=== PATIENT | male | born 1960 | race Caucasian/White ===

== ENCOUNTER 2019-09-25 11:11 | Inpatient (IN) | payer SELFPAY ==
[~2019-09-25] VITALS: Ht 175.2 cm; Wt 68.1 kg
[2019-09-25] VITALS (12 sets, daily range): BP systolic 142–214; BP diastolic 80–121
[~2019-09-25 11:11] MED LIST: KEFLEX500 MG PO; MOTRIN800 MG PO; TOBRADEX 0.1%-0.5 ML OPH; VICODIN 5/500 505 MG PO; [UNRECOGNIZED DRUG - REMARK]
[2019-09-25 11:35] LABS: BASO % 0.5 % (0.0-1.0); EOS # 0.2 10*3/uL (0.0-0.4); EOS % 3.1 % (1.0-4.0); HEMATOCRIT 41.9 % (42.0-52.0); LYMPH % 13.4 % (27.0-41.0); MEAN CELL VOLUME 91.9 fl (80.0-94.0); MEAN CORPUSCULAR HGB 31.8 pg (27.0-31.0); MEAN CORPUSCULAR HGB CONC 34.6 g/dl (33.0-37.0); MEAN PLATELET VOLUME 9.4 fl (9.6-12.3); MONO # 0.5 10*3/uL (0.1-1.0); MONO % 6.5 % (3.0-9.0); NEUT # 5.8 10*3/uL (2.3-7.9); NEUT % 76.1 % (47.0-73.0); PLATELET COUNT AUTOMATED 160 10*3/uL (130-400); RED BLOOD COUNT 4.56 10*6/uL (4.50-5.90); WHITE BLOOD COUNT 7.6 10*3/uL (4.8-10.8)
[2019-09-25 11:46] LABS: ACT PARTIAL THROMBO TIME 24.2 SECONDS (20.0-32.1)
--- NOTE | 2019-09-25 11:50 | NUR ---
Susy humphrey aware of pt with increased blood pressure and orders at this time.
[2019-09-25 11:51] LABS: ALBUMIN 3.8 gm/dl (3.1-4.5); ALKALINE PHOSPHATASE 79 U/L (45-117); BUN 11 mg/dl (7-24); CHLORIDE 107 mmol/L (98-107); POTASSIUM 4.4 mmol/L (3.5-5.1); SGOT/AST 25 IU/L (3-35); SGPT/ALT 33 U/L (12-78); SODIUM 140 mmol/L (136-145); TOTAL PROTEIN 7.3 gm/dL (6.4-8.2)
[2019-09-25 11:55] LABS: TROPONIN I < 0.015 ng/ml (<0.045)
--- NOTE | 2019-09-25 12:10 | NUR ---
Pt states pain is better after nitro.
--- NOTE | 2019-09-25 13:55 | NUR ---
Susy pa aware of increased blood pressure in the 190s and orders at this time.
--- NOTE | 2019-09-25 14:09 | NUR ---
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
--- NOTE | 2019-09-25 14:58 | NUR ---
Jacob and in to see pt.Aware of increased blood pressure,Ok to get manual and then pt can go to room.
--- NOTE | 2019-09-25 15:15 | NUR ---
Pt transfered [facility] and pt had all belongings.
--- NOTE | 2019-09-25 15:20 | NUR ---
A 59, admitted to 5E, under the services of BECK Cardoza DO with a diagnosis of CHEST PAIN,HTN. Chief complaint is CHEST PAIN. Patient arrived via bed from ER. Monitor applied. Initial assessment completed. Vital signs taken and recorded. BECK CARDOZA DO notified of admission to the unit. Orders received. See assessment for past medical history, medications and allergies. Patient and/or family oriented to unit. [facility] visitation policy reviewed. Clothing/patient valuable form completed. JAMES ESQUIVEL
--- NOTE | 2019-09-25 15:22 | NUR ---
LADONNA VALENCIA GIVEN PER ORDER. MANUAL BP 214/110.
--- NOTE | 2019-09-25 16:30 | NUR ---
REPEAT MANUAL BP 194/114. DR. NORIEGA NOTIFIED.
--- NOTE | 2019-09-25 20:00 | NUR ---
PATIENT RESTING IN BED, NO DISTRESS NOTED. ASSSESSMENT COMPLETE. PATIENT AWARE HE IS TO BE NPO AT MIDNIGHT FOR STRESS TEST IN MORNING. BP STABLE. WILL CONT TO MONITOR.
[2019-09-26] VITALS: BP 142/93
--- NOTE | 2019-09-26 00:19 | NUR ---
NORCO GIVEN PER ORDER FOR PAIN RIGHT SIDE CHEST PAIN WORSE WITH MOVEMENT RATED "10" BUT NOT THAT BAD IF HE'S LAYING STILL. SEE MAR.
--- NOTE | 2019-09-26 01:15 | NUR ---
PERCOCET EFFECTIVE FOR PAIN PER PT.
--- NOTE | 2019-09-26 02:09 | NUR ---
24 HR chart check completed.
[2019-09-26 05:48] VITALS: BP 168/98
--- NOTE | 2019-09-26 05:50 | NUR ---
CALLED RESIDENT PHONE NO ANSWER TO NOTIFY THEM OF BP.
[2019-09-26 06:56] LABS: BASO # 0.1 10*3/uL (0.0-0.1); BASO % 0.7 % (0.0-1.0); EOS # 0.4 10*3/uL (0.0-0.4); EOS % 5.3 % (1.0-4.0); HEMATOCRIT 42.2 % (42.0-52.0); LYMPH # 1.5 10*3/uL (1.3-4.4); LYMPH % 21.5 % (27.0-41.0); MEAN CELL VOLUME 93.8 fl (80.0-94.0); MEAN CORPUSCULAR HGB 31.1 pg (27.0-31.0); MEAN CORPUSCULAR HGB CONC 33.2 g/dl (33.0-37.0); MEAN PLATELET VOLUME 10.3 fl (9.6-12.3); MONO # 0.6 10*3/uL (0.1-1.0); MONO % 9.2 % (3.0-9.0); NEUT # 4.4 10*3/uL (2.3-7.9); PLATELET COUNT AUTOMATED 142 10*3/uL (130-400); RED CELL DISTRI WIDTH 11.9 % (0-14.5); WHITE BLOOD COUNT 6.9 10*3/uL (4.8-10.8)
[2019-09-26 07:23] LABS: ALBUMIN 3.4 gm/dl (3.1-4.5); ALKALINE PHOSPHATASE 72 U/L (45-117); BUN 18 mg/dl (7-24); CHLORIDE 102 mmol/L (98-107); CHOLESTEROL 163 mg/dL (<200); CREATININE 0.87 mg/dL (0.70-1.30); HDL CHOLESTEROL 113 mg/dl (40-60); LDL CHOLESTEROL 37 mg/dL (9-159); POTASSIUM 4.1 mmol/L (3.5-5.1); SGOT/AST 22 IU/L (3-35); SGPT/ALT 28 U/L (12-78); SODIUM 135 mmol/L (136-145); TOTAL PROTEIN 6.5 gm/dL (6.4-8.2); TRIGLYCERIDES 64 mg/dl (<150); VLDL CHOLESTEROL 13 mg/dL (6-40)
[2019-09-26 07:33] LABS: ACT PARTIAL THROMBO TIME 25.9 SECONDS (20.0-32.1)
[2019-09-26 08:00] VITALS: BP 169/96
--- NOTE | 2019-09-26 08:00 | NUR ---
DR. POST HAS ROUNDED AND AWARE OF ELEVATED BP. NORVASC TO BE GIVEN EARLY.
[2019-09-26 08:09] LABS: VITAMIN D, 25-HYDROXY 19.5 ng/mL (30-100)
--- NOTE | 2019-09-26 10:35 | NUR ---
PATIENT TAKEN TO CARDIAC REHAB.
--- NOTE | 2019-09-26 11:00 | NUR ---
INFORMED CONSENT OBTAINED FOR LEXISCAN NUCLEAR STRESS TEST WITH DR. FINNEY. RESTING EKG SINUS CHRISTINA WITH A RESTING HR OF 56 WITH BP OF 174/96. LUNGS CLEAR WITH SPO2 OF 99% ON ROOM AIR. PT COMPLETED A 1:00 LEXISCAN PROTOCOL RECEIVING LEXISCAN 0.4 MG IV OVER 10 SECONDS. HAD NO CHEST PAIN OR ANY EKG CHANGES. HAD A PEAK HR OF 89 WITH BP OF 154/88. LAST RECOVERY HR OF 73 WITH BP OF 156/90. AWAITING SCANNING IN STABLE CONDITION.
[2019-09-26 12:00] VITALS: BP 148/88
--- NOTE | 2019-09-26 12:00 | NUR ---
Assistant Dean Of Students in to talk to patient. Patient states lives at HOME with GIRLFRIEND. There are 3 steps in the home. Physician: NONE AT THIS TIME Pharmacy: NO MEDS Home health services: NONE Patient's level of ADLs: INDEPENDENT Patient has working utilities: YES DME: NONE Follow-up physician's appointment after d/c: WILL FIND ONE AND MAKE APPOINTMENT Does patient want to access PORTAL?: NO Discharge plan PT LIVES AT HOME WITH HIS GIRLFRIEND AND IS INDEPENDENT IN HIS CARE. DENIES HE WILL HAVE ANY NEEDS ON DISCHARGE. PLANS TO RETURN HOME WHEN MEDICALLY STABLE. WILL CONTINUE TO FOLLOW. PT WILL HAVE A RIDE HOME.. AARON MARRUFO
--- NOTE | 2019-09-26 12:39 | NUR ---
PATIENT IS BACK FROM STRESS TEST.
[2019-09-26] MEDS ORDERED: LISINOPRIL10 M1 PO (15:09)
[2019-09-26] MEDS ORDERED: VITAMIN B-12100 MCG PO (15:09)
[2019-09-26] MEDS ORDERED: VITAMIN D350 MC2 PO (15:09)
[2019-09-26] MEDS ORDERED: AMLODIPINE BESYL5 MG PO (15:09)
--- NOTE | 2019-09-26 15:34 | NUR ---
PATIENT BEING DISCHARGED.
== END 2019-09-26 15:34 | disposition home or self-care (01) | DRG 206 ==
LOC: ED 11:11 → 5E 13:20 → EDHOLD 13:20 → 5E 14:29
PROVIDERS: Emergency Medicine; Internal Medicine; ADMIT Internal Medicine
PROC: 4A02XM4 Measurement of Cardiac Total Activity, External Approach (ICD-10-PCS; principal; 2019-09-26)
PROC: 3E073KZ Introduction of Other Diagnostic Substance into Coronary Artery, Percutaneous Approach (ICD-10-PCS; principal; 2019-09-26)
DX: M94.0 Chondrocostal junction syndrome [Tietze] (principal); E87.1 Hypo-osmolality and hyponatremia; I16.0 Hypertensive urgency; I10 Essential (primary) hypertension; F41.9 Anxiety disorder, unspecified; K21.9 Gastro-esophageal reflux disease without esophagitis; E83.41 Hypermagnesemia; F17.220 Nicotine dependence, chewing tobacco, uncomplicated; R00.1 Bradycardia, unspecified; E53.8 Deficiency of other specified B group vitamins; Z86.73 Personal history of transient ischemic attack (TIA), and cerebral infarction without residual deficits; Z71.6 Tobacco abuse counseling; Z82.49 Family history of ischemic heart disease and other diseases of the circulatory system; Z82.3 Family history of stroke

== ENCOUNTER 2019-10-29 22:06 | Observation (INO) | payer OTHER ==
[~2019-10-29] VITALS: Ht 175.2 cm; Wt 69.0 kg
[~2019-10-29 22:06] MED LIST changes: +AMLODIPINE BESYL5 MG PO; +LISINOPRIL10 M1 PO; +VITAMIN B-12100 MCG PO; +VITAMIN D350 MC2 PO
[2019-10-29 22:13] VITALS: BP 140/86
[2019-10-29 22:26] VITALS: BP 136/74
[2019-10-29 22:40] VITALS: BP 126/81
[2019-10-29 22:57] LABS: BASO # 0.1 10*3/uL (0.0-0.1); BASO % 0.5 % (0.0-1.0); EOS % 0.2 % (1.0-4.0); HEMATOCRIT 40.2 % (42.0-52.0); LYMPH # 1.6 10*3/uL (1.3-4.4); LYMPH % 16.7 % (27.0-41.0); MEAN CELL VOLUME 94.6 fl (80.0-94.0); MEAN CORPUSCULAR HGB 31.5 pg (27.0-31.0); MEAN CORPUSCULAR HGB CONC 33.3 g/dl (33.0-37.0); MEAN PLATELET VOLUME 9.3 fl (9.6-12.3); MONO # 1.2 10*3/uL (0.1-1.0); NEUT # 6.6 10*3/uL (2.3-7.9); NEUT % 69.4 % (47.0-73.0); PLATELET COUNT AUTOMATED 191 10*3/uL (130-400); RED BLOOD COUNT 4.25 10*6/uL (4.50-5.90); WHITE BLOOD COUNT 9.6 10*3/uL (4.8-10.8)
[2019-10-29 23:00] VITALS: BP 133/83
[2019-10-29 23:09] LABS: ACT PARTIAL THROMBO TIME 24.6 SECONDS (20.0-32.1)
[2019-10-29 23:15] LABS: ALBUMIN 4.2 gm/dl (3.1-4.5); ALKALINE PHOSPHATASE 97 U/L (45-117); BUN 21 mg/dl (7-24); CHLORIDE 105 mmol/L (98-107); CREATININE 1.06 mg/dL (0.70-1.30); POTASSIUM 3.2 mmol/L (3.5-5.1); SGOT/AST 43 IU/L (3-35); SGPT/ALT 37 U/L (12-78); SODIUM 136 mmol/L (136-145); TOTAL PROTEIN 7.8 gm/dL (6.4-8.2)
[2019-10-29 23:29] LABS: TROPONIN I < 0.015 ng/ml (<0.045)
[2019-10-29 23:30] VITALS: BP 137/88
--- NOTE | 2019-10-30 00:12 | NUR ---
PT STATES LONG HE DOES NOT MOVE HE IS NOT HAVING ANY CHEST PAIN. SETH VEGA RN.
[2019-10-30 00:56] VITALS: BP 136/85
--- NOTE | 2019-10-30 01:30 | NUR ---
A 59, admitted to 4E, under the services of PABLO Castorena DO with a diagnosis of CHEST PAIN. Chief complaint is CHEST PAIN. Patient arrived via bed from ER. Monitor applied. Initial assessment completed. Vital signs taken and recorded. PABLO CASTORENA DO notified of admission to the unit. Orders received. See assessment for past medical history, medications and allergies. Patient oriented to unit. Clothing/patient valuable form completed. JOHN VILLAGOMEZ
--- NOTE | 2019-10-30 01:30 | NUR ---
A 59, admitted to , under the services of PABLO Castorena DO with a diagnosis of CHEST PAIN. Chief complaint is CHEST PAIN WITH MOVEMENT. Patient arrived via stretcher from ER. Monitor applied. Initial assessment completed. Vital signs taken and recorded. PABLO CASTORENA DO notified of admission to the unit. Orders received. See assessment for past medical history, medications and allergies. Patient and/or family oriented to unit. [facility] visitation policy reviewed. Clothing/patient valuable form completed. CONRADO VEE
--- NOTE | 2019-10-30 01:41 | NUR ---
PT. STATES HE DOES NOT TAKE ANY HOME MEDICATIONS AND REFUSES TO GIVE PASSWORD AT THIS TIME. CONRADO VEE RN
[2019-10-30 01:43] VITALS: BP 170/90
[2019-10-30 04:22] LABS: BASO # 0.1 10*3/uL (0.0-0.1); BASO % 0.7 % (0.0-1.0); EOS # 0.3 10*3/uL (0.0-0.4); EOS % 3.7 % (1.0-4.0); HEMATOCRIT 39.3 % (42.0-52.0); LYMPH # 1.9 10*3/uL (1.3-4.4); LYMPH % 28.5 % (27.0-41.0); MEAN CORPUSCULAR HGB 31.8 pg (27.0-31.0); MEAN CORPUSCULAR HGB CONC 33.8 g/dl (33.0-37.0); MEAN PLATELET VOLUME 9.4 fl (9.6-12.3); MONO # 0.9 10*3/uL (0.1-1.0); NEUT # 3.7 10*3/uL (2.3-7.9); PLATELET COUNT AUTOMATED 164 10*3/uL (130-400); RED BLOOD COUNT 4.18 10*6/uL (4.50-5.90); RED CELL DISTRI WIDTH 13.1 % (0-14.5); WHITE BLOOD COUNT 6.8 10*3/uL (4.8-10.8)
[2019-10-30 04:39] LABS: ALBUMIN 3.8 gm/dl (3.1-4.5); ALKALINE PHOSPHATASE 90 U/L (45-117); BUN 17 mg/dl (7-24); CHLORIDE 108 mmol/L (98-107); CREATININE 0.95 mg/dL (0.70-1.30); POTASSIUM 3.8 mmol/L (3.5-5.1); SGOT/AST 38 IU/L (3-35); SGPT/ALT 37 U/L (12-78); SODIUM 138 mmol/L (136-145); TOTAL PROTEIN 7.2 gm/dL (6.4-8.2)
--- NOTE | 2019-10-30 05:45 | NUR ---
DR. BARON HAS STATED THAT HE WOULD LIKE TO BE A DNR:[place] AND HAS SIGNED THE PAPERWORK ACCORDINGLY. COULD YOU PLEASE CHANGE CODE STATUS ORDER TO REFLECT. THANKS
--- NOTE | 2019-10-30 05:46 | NUR ---
DR. CLEMENTS HAS STATED THAT HE WOULD LIKE TO BE A DNRCCA:ARREST. THE PAPERWORK HAS BEEN FILLED OUT TO REFLECT THIS CHANGE. PLEASE CHANGE CODE STATUS TO REFLECT PATIENTS WISHES. THANKS
[2019-10-30 08:00] VITALS: BP 184/100
--- NOTE | 2019-10-30 08:23 | NUR ---
NOTIFIED OF BLOOD PRESSURE 184/100 MANUALLY.
--- NOTE | 2019-10-30 10:50 | NUR ---
PATIENT MEDICATED WITH TORADOL PER ONE TIME ORDER FOR C/O CHEST PAIN.
--- NOTE | 2019-10-30 11:50 | NUR ---
PER PATIENT TORADOL EFFECTIVE.
[2019-10-30 12:00] VITALS: BP 182/95
--- NOTE | 2019-10-30 12:25 | NUR ---
NOTIFIED BLOOD PRESSURE 182/95.
--- NOTE | 2019-10-30 12:47 | NUR ---
PATIENT MEDICATED WITH APRESOLINE 10MG IV PER ONE TIME ORDER FOR BLOOD PRESSURE 182/95.
[2019-10-30 13:55] VITALS: BP 144/84
--- NOTE | 2019-10-30 13:55 | NUR ---
REPEAT BLOOD PRESSURE 144/84. APRESOLINE EFFECTIVE.
[2019-10-30] MEDS ORDERED: AMLODIPINE BESYL5 MG PO (14:50)
[2019-10-30] MEDS ORDERED: LISINOPRIL10 M1 PO (14:50)
[2019-10-30 16:00] VITALS: BP 156/90
--- NOTE | 2019-10-30 17:00 | NUR ---
PATIENT DISCHARGED TO HOME. ALL PERSONAL BELONGINGS SENT WITH PATIENT. IV AND UNIVERSITY PROFESSOR DISCONTINUED. DISCHARGE INSTRUCTIONS GIVEN AND REVIEWED. PATIENT INFORMED OF FOLLOW UP APPOINTMENT WITH . PATIENT PRESCRIPTIONS SENT TO [facility] TO BE FILLED AND PATIENT STATED THAT HE WOULD PICK THEM UP.
== END 2019-10-30 17:00 | disposition home or self-care (01) ==
LOC: ED 22:06 → EDHOLD 10-30 00:45 → 4E 10-30 00:45
PROVIDERS: Emergency Medicine; Student in an Organized Health Care Education/Training Program; ADMIT Emergency Medicine
DX: R07.89 Other chest pain (principal); E53.8 Deficiency of other specified B group vitamins; F41.9 Anxiety disorder, unspecified; R06.82 Tachypnea, not elsewhere classified; D64.9 Anemia, unspecified; E87.6 Hypokalemia; K21.9 Gastro-esophageal reflux disease without esophagitis; E83.41 Hypermagnesemia; F17.220 Nicotine dependence, chewing tobacco, uncomplicated; I10 Essential (primary) hypertension; I16.0 Hypertensive urgency

== ENCOUNTER → 2019-11-07 | Outpatient (CLI) | payer OTHER | END | disposition home or self-care (01) | LOC: RESCLI 00:50 | DX: I10 Essential (primary) hypertension (principal); I63.9 Cerebral infarction, unspecified; F41.9 Anxiety disorder, unspecified; B19.20 Unspecified viral hepatitis C without hepatic coma; Z98.890 Other specified postprocedural states; Z79.899 Other long term (current) drug therapy ==

== ENCOUNTER → 2019-12-13 | Outpatient (CLI) | payer OTHER | END | disposition home or self-care (01) | LOC: RESCLI 00:56 | DX: I10 Essential (primary) hypertension (principal); E55.9 Vitamin D deficiency, unspecified; E53.8 Deficiency of other specified B group vitamins; Z12.11 Encounter for screening for malignant neoplasm of colon; Z86.73 Personal history of transient ischemic attack (TIA), and cerebral infarction without residual deficits; Z98.890 Other specified postprocedural states; Z79.899 Other long term (current) drug therapy ==

== ENCOUNTER → 2020-04-03 | Outpatient (CLI) | payer OTHER ==
[2020-04-03 10:18] LABS: BASO # 0.1 10*3/uL (0.0-0.1); BASO % 0.9 % (0.0-1.0); EOS # 0.6 10*3/uL (0.0-0.4); EOS % 8.3 % (1.0-4.0); HEMATOCRIT 47.1 % (42.0-52.0); LYMPH # 1.4 10*3/uL (1.3-4.4); LYMPH % 21.7 % (27.0-41.0); MEAN CELL VOLUME 91.3 fl (80.0-94.0); MEAN CORPUSCULAR HGB 29.7 pg (27.0-31.0); MEAN CORPUSCULAR HGB CONC 32.5 g/dl (33.0-37.0); MEAN PLATELET VOLUME 10.5 fl (9.6-12.3); MONO # 0.6 10*3/uL (0.1-1.0); MONO % 8.9 % (3.0-9.0); PLATELET COUNT AUTOMATED 253 10*3/uL (130-400); RED BLOOD COUNT 5.16 10*6/uL (4.50-5.90); RED CELL DISTRI WIDTH 11.6 % (0-14.5); WHITE BLOOD COUNT 6.6 10*3/uL (4.8-10.8)
[2020-04-03 10:53] LABS: BUN 16 mg/dl (7-24); CHLORIDE 106 mmol/L (98-107); SGOT/AST 20 IU/L (3-35); SODIUM 140 mmol/L (136-145)
[2020-04-03 10:54] LABS: ALKALINE PHOSPHATASE 74 U/L (45-117); BILIRUBIN, DIRECT 0.2 mg/dL (0.0-0.2); CREATININE 1.08 mg/dL (0.70-1.30); SGPT/ALT 27 U/L (12-78); TOTAL PROTEIN 7.7 gm/dL (6.4-8.2)
[2020-04-04 06:08] LABS: HEP B CORE AB, IGM Negative (Negative); HEPATITIS B SURFACE AG Negative (Negative)
[2020-04-08 09:49] LABS: HEPATITIS C VIRUS ANTIBODY >11.0 s/co (0.0-0.9)
[2020-04-08 17:10] LABS: TB1 Ag VALUE 0.11 IU/mL (.)
== END | disposition home or self-care (01) ==
LOC: LAB 09:52
PROVIDERS: ATTEND Registered Nurse Critical Care Medicine
DX: F11.20 Opioid dependence, uncomplicated (principal); F14.11 Cocaine abuse, in remission

== ENCOUNTER 2020-05-18 22:34 | Emergency (ER) | payer OTHER ==
[~2020-05-18] VITALS: Ht 165.1 cm; Wt 72.6 kg
[2020-05-18 23:06] LABS: BASO # 0.1 10*3/uL (0.0-0.1); BASO % 0.8 % (0.0-1.0); EOS # 0.4 10*3/uL (0.0-0.4); EOS % 6.5 % (1.0-4.0); HEMATOCRIT 39.8 % (42.0-52.0); LYMPH # 1.9 10*3/uL (1.3-4.4); LYMPH % 29.2 % (27.0-41.0); MEAN CELL VOLUME 89.4 fl (80.0-94.0); MEAN CORPUSCULAR HGB CONC 32.4 g/dl (33.0-37.0); MEAN PLATELET VOLUME 9.9 fl (9.6-12.3); MONO # 0.7 10*3/uL (0.1-1.0); NEUT # 3.5 10*3/uL (2.3-7.9); PLATELET COUNT AUTOMATED 257 10*3/uL (130-400); RED BLOOD COUNT 4.45 10*6/uL (4.50-5.90); RED CELL DISTRI WIDTH 12.3 % (0-14.5); WHITE BLOOD COUNT 6.6 10*3/uL (4.8-10.8)
[2020-05-18 23:24] LABS: ALBUMIN 3.3 gm/dl (3.1-4.5); ALKALINE PHOSPHATASE 68 U/L (45-117); BUN 22 mg/dl (7-24); CHLORIDE 107 mmol/L (98-107); CREATININE 1.15 mg/dL (0.70-1.30); POTASSIUM 4.3 mmol/L (3.5-5.1); SGOT/AST 15 IU/L (3-35); SGPT/ALT 30 U/L (12-78); SODIUM 141 mmol/L (136-145)
[2020-05-18 23:25] LABS: TROPONIN I < 0.015 ng/ml (<0.045)
== END 2020-05-19 00:05 | disposition home or self-care (01) ==
LOC: ED 22:34
PROVIDERS: Internal Medicine
DX: R07.9 Chest pain, unspecified (principal)

== ENCOUNTER → 2020-06-11 | Outpatient (CLI) | payer OTHER ==
[2020-06-11 07:53] LABS: BASO # 0.1 10*3/uL (0.0-0.1); BASO % 0.7 % (0.0-1.0); EOS # 0.5 10*3/uL (0.0-0.4); EOS % 5.6 % (1.0-4.0); HEMATOCRIT 42.3 % (42.0-52.0); LYMPH # 2.1 10*3/uL (1.3-4.4); LYMPH % 21.4 % (27.0-41.0); MEAN CORPUSCULAR HGB 29.4 pg (27.0-31.0); MEAN CORPUSCULAR HGB CONC 33.8 g/dl (33.0-37.0); MEAN PLATELET VOLUME 10.4 fl (9.6-12.3); MONO # 0.7 10*3/uL (0.1-1.0); MONO % 7.5 % (3.0-9.0); NEUT # 6.2 10*3/uL (2.3-7.9); NEUT % 64.1 % (47.0-73.0); PLATELET COUNT AUTOMATED 350 10*3/uL (130-400); RED BLOOD COUNT 4.86 10*6/uL (4.50-5.90); RED CELL DISTRI WIDTH 13.1 % (0-14.5); WHITE BLOOD COUNT 9.7 10*3/uL (4.8-10.8)
[2020-06-11 08:03] LABS: INTERNATIONAL NORM RATIO 0.9 (2.0-3.5)
[2020-06-11 08:25] LABS: ALBUMIN 3.6 gm/dl (3.1-4.5); BILIRUBIN, DIRECT < 0.1 mg/dL (0.0-0.2); SGOT/AST 10 IU/L (3-35); SGPT/ALT 28 U/L (12-78)
[2020-06-11 08:27] LABS: ALKALINE PHOSPHATASE 74 U/L (45-117); TOTAL PROTEIN 7.4 gm/dL (6.4-8.2)
[2020-06-12 07:09] LABS: HEPATITIS A AB, TOTAL Positive (Negative); HEPATITIS B SURFACE AB Non Reactive (.); HEPATITIS B SURFACE AG Negative (Negative)
[2020-06-12 21:06] LABS: HEPATITIS C QNT HCV Not Detected IU/mL (.)
== END | disposition home or self-care (01) ==
LOC: LAB 00:41
PROVIDERS: ATTEND Internal Medicine Gastroenterology
DX: R76.8 Other specified abnormal immunological findings in serum (principal)

== ENCOUNTER 2020-09-12 20:01 | Emergency (ER) | payer OTHER ==
[~2020-09-12] VITALS: Ht 175.2 cm; Wt 79.4 kg
[2020-09-12 20:21] LABS: BASO # 0.1 10*3/uL (0.0-0.1); BASO % 0.5 % (0.0-1.0); EOS # 0.3 10*3/uL (0.0-0.4); EOS % 2.8 % (1.0-4.0); LYMPH # 2.3 10*3/uL (1.3-4.4); LYMPH % 21.6 % (27.0-41.0); MEAN CELL VOLUME 91.5 fl (80.0-94.0); MEAN CORPUSCULAR HGB 30.4 pg (27.0-31.0); MEAN CORPUSCULAR HGB CONC 33.3 g/dl (33.0-37.0); MEAN PLATELET VOLUME 9.9 fl (9.6-12.3); MONO # 1.1 10*3/uL (0.1-1.0); NEUT % 64.7 % (47.0-73.0); PLATELET COUNT AUTOMATED 290 10*3/uL (130-400); RED CELL DISTRI WIDTH 12.8 % (0-14.5); WHITE BLOOD COUNT 10.9 10*3/uL (4.8-10.8)
[2020-09-12 20:32] LABS: ACT PARTIAL THROMBO TIME 23.3 SECONDS (20.0-32.1)
[2020-09-12 20:54] LABS: ALBUMIN 3.8 gm/dl (3.1-4.5); ALKALINE PHOSPHATASE 101 U/L (45-117); BUN 20 mg/dl (7-24); CHLORIDE 109 mmol/L (98-107); CREATININE 1.15 mg/dL (0.70-1.30); POTASSIUM 4.1 mmol/L (3.5-5.1); SGOT/AST 22 IU/L (3-35); SGPT/ALT 32 U/L (12-78); SODIUM 141 mmol/L (136-145); TOTAL PROTEIN 7.6 gm/dL (6.4-8.2)
[2020-09-12 20:55] LABS: TROPONIN I < 0.015 ng/ml (<0.045)
== END 2020-09-13 02:18 | disposition home or self-care (01) ==
LOC: ED 20:01
PROVIDERS: Emergency Medicine
DX: R07.89 Other chest pain (principal); F41.9 Anxiety disorder, unspecified; K21.9 Gastro-esophageal reflux disease without esophagitis; I10 Essential (primary) hypertension; Z79.899 Other long term (current) drug therapy

== ENCOUNTER 2021-08-14 22:35 | Emergency (ER) | payer OTHER ==
[~2021-08-14] VITALS: Ht 172.7 cm; Wt 74.8 kg
[2021-08-15 00:07] LABS: BASO # 0.1 10*3/uL (0.0-0.1); BASO % 0.5 % (0.0-1.0); EOS # 0.2 10*3/uL (0.0-0.4); EOS % 1.5 % (1.0-4.0); HEMATOCRIT 42.1 % (42.0-52.0); LYMPH # 1.2 10*3/uL (1.3-4.4); LYMPH % 11.9 % (27.0-41.0); MEAN CELL VOLUME 86.6 fl (80.0-94.0); MEAN CORPUSCULAR HGB 29.8 pg (27.0-31.0); MEAN CORPUSCULAR HGB CONC 34.4 g/dl (33.0-37.0); MEAN PLATELET VOLUME 9.3 fl (9.6-12.3); MONO # 0.5 10*3/uL (0.1-1.0); MONO % 5.2 % (3.0-9.0); NEUT # 8.1 10*3/uL (2.3-7.9); NEUT % 80.2 % (47.0-73.0); PLATELET COUNT AUTOMATED 293 10*3/uL (130-400); RED BLOOD COUNT 4.86 10*6/uL (4.50-5.90); WHITE BLOOD COUNT 10.1 10*3/uL (4.8-10.8)
[2021-08-15 00:26] LABS: BUN 9 mg/dl (7-24); CHLORIDE 103 mmol/L (98-107); CREATININE 0.86 mg/dL (0.70-1.30); POTASSIUM 3.5 mmol/L (3.5-5.1); SODIUM 139 mmol/L (136-145)
== END 2021-08-15 00:46 | disposition short-term general hospital (02) ==
LOC: ED 22:35
PROVIDERS: Emergency Medicine; Internal Medicine
DX: S42.302A Unspecified fracture of shaft of humerus, left arm, initial encounter for closed fracture (principal); S01.112A Laceration without foreign body of left eyelid and periocular area, initial encounter; W10.8XXA Fall (on) (from) other stairs and steps, initial encounter; Y93.89 Activity, other specified; Y92.89 Other specified places as the place of occurrence of the external cause; Y99.8 Other external cause status

== ENCOUNTER 2021-09-18 11:53 | Emergency (ER) | payer OTHER ==
[~2021-09-18] VITALS: Ht 180.3 cm; Wt 76.2 kg
== END 2021-09-18 16:30 | disposition short-term general hospital (02) ==
LOC: ED 11:53
DX: S06.5X0A Traumatic subdural hemorrhage without loss of consciousness, initial encounter (principal); S22.49XA Multiple fractures of ribs, unspecified side, initial encounter for closed fracture; S02.91XA Unspecified fracture of skull, initial encounter for closed fracture; S42.202A Unspecified fracture of upper end of left humerus, initial encounter for closed fracture; S06.6X0A Traumatic subarachnoid hemorrhage without loss of consciousness, initial encounter; W17.89XA Other fall from one level to another, initial encounter; Y93.89 Activity, other specified; Y92.89 Other specified places as the place of occurrence of the external cause; Y99.8 Other external cause status

== ENCOUNTER 2022-04-29 10:25 | Emergency (ER) | payer OTHER ==
[~2022-04-29] VITALS: Ht 175.2 cm; Wt 78.0 kg
[2022-04-29 11:24] LABS: BASO # 0.1 10*3/uL (0.0-0.1); BASO % 0.7 % (0.0-1.0); EOS # 0.2 10*3/uL (0.0-0.4); EOS % 3.4 % (1.0-4.0); HEMATOCRIT 45.7 % (42.0-52.0); LYMPH # 1.4 10*3/uL (1.3-4.4); LYMPH % 20.7 % (27.0-41.0); MEAN CELL VOLUME 90.9 fl (80.0-94.0); MEAN CORPUSCULAR HGB CONC 34.1 g/dl (33.0-37.0); MEAN PLATELET VOLUME 10.6 fl (9.6-12.3); MONO # 0.7 10*3/uL (0.1-1.0); MONO % 10.1 % (3.0-9.0); NEUT # 4.4 10*3/uL (2.3-7.9); NEUT % 64.8 % (47.0-73.0); PLATELET COUNT AUTOMATED 231 10*3/uL (130-400); RED BLOOD COUNT 5.03 10*6/uL (4.50-5.90); WHITE BLOOD COUNT 6.8 10*3/uL (4.8-10.8)
[2022-04-29 11:43] LABS: ALKALINE PHOSPHATASE 78 U/L (46-116); BUN 15 mg/dl (9-23); CHLORIDE 105 mmol/L (98-107); CREATININE 0.91 mg/dL (0.70-1.30); POTASSIUM 4.5 mmol/L (3.4-5.1); SGPT/ALT 23 U/L (10-49); SODIUM 140 mmol/L (136-145); TOTAL PROTEIN 7.1 gm/dL (6.0-8.0)
== END 2022-04-29 13:00 | disposition home or self-care (01) ==
LOC: ED 10:25
PROVIDERS: Student in an Organized Health Care Education/Training Program
DX: R07.89 Other chest pain (principal); I10 Essential (primary) hypertension

== ENCOUNTER 2022-09-29 09:51 | Emergency (ER) | payer OTHER ==
[~2022-09-29] VITALS: Ht 175.2 cm; Wt 81.2 kg
== END 2022-09-29 11:38 | disposition home or self-care (01) ==
LOC: ED 09:51
DX: M25.532 Pain in left wrist (principal); I10 Essential (primary) hypertension; K21.9 Gastro-esophageal reflux disease without esophagitis; Z98.890 Other specified postprocedural states

== ENCOUNTER 2024-05-14 18:24 | Emergency (ER) | payer OTHER, MEDICAID, MEDICARE ==
[~2024-05-14] VITALS: Ht 175.2 cm; Wt 81.2 kg
[2024-05-14 19:05] LABS: BASO % 0.4 % (0.0-1.0); EOS % 0.4 % (1.0-4.0); HEMATOCRIT 41.8 % (42.0-52.0); MEAN CELL VOLUME 89.1 fl (80.0-94.0); MEAN CORPUSCULAR HGB 29.9 pg (27.0-31.0); MEAN CORPUSCULAR HGB CONC 33.5 g/dl (33.0-37.0); MONO # 1.4 10*3/uL (0.1-1.0); NEUT # 5.4 10*3/uL (2.3-7.9); NEUT % 66.7 % (47.0-73.0); PLATELET COUNT AUTOMATED 220 10*3/uL (130-400); RED BLOOD COUNT 4.69 10*6/uL (4.50-5.90)
[2024-05-14 19:24] LABS: BUN 16 mg/dl (9-23); CHLORIDE 103 mmol/L (98-107)
[2024-05-14] MEDS ORDERED: PAXLOVID 300-11 EAC3 PO (19:57)
== END 2024-05-14 19:54 | disposition home or self-care (01) ==
LOC: ED 18:24
PROVIDERS: Nurse Practitioner Family
DX: U07.1 COVID-19 (principal); I10 Essential (primary) hypertension; K21.9 Gastro-esophageal reflux disease without esophagitis; Z98.890 Other specified postprocedural states